=== PATIENT | female | born 1970 | race Caucasian/White ===

== ENCOUNTER → 2018-03-03 | Outpatient (CLI) | payer BC ==
--- NOTE | 2018-03-04 14:49 | MG ---
HISTORY: SCREENING Comparison: No previous mammograms are available for comparison. FINDINGS: Bilateral CC and MLO projections of the right and left breast were obtained. In addition implant disp laced views of both breasts were also obtained. Bilateral subpectoral breast implants are normal and symmetric in appearance. Heterogeneously dense fibroglandular tissue is seen to be present. On the CCID view of the right breast, a 7 mm nodular density with irregular margins is identified posteriorl y in the medial aspect of the right breast. No other findings to suggest dominant mass, areas archite ctural distortion, or suspicious microcalcifications in either breast.. No skin thickening or nipple retraction is appreciated. No pathological lymphadenopathy can be identified. Benign-appearing jorge cifications scattered throughout the right and left breasts are observed. IMPRESSION: 7 mm nodular density located posteriorly in the medial aspect of the right breast, on th e CCID view. ACR CATEGORY: 0 - incomplete-Needs additional imaging evaluation Patient should be brought back for spot compression CCID view of the right breast. In addition target ed right breast ultrasound may also be warranted. Diagnostic CAD was utilized and reviewed. * 0 (ZERO) - ASSESSMENT INCOMPLETE; ADDITIONAL IMAGING IS NEEDED. * 1/1 (ONE) - NEGATIVE. * 2/II (TWO) - BENIGN FINDINGS. * 3/III (THREE) - PROBABLY BENIGN FINDING; SHORT INTERVAL FOLLOW-UP SUGGESTED. * 4/IV (FOUR) - SUSPICIOUS ABNORMALITY; BIOPSY SHOULD BE CONSIDERED. * 5/V - HIGHLY SUSPICIOUS OF MALIGNANCY; BIOPSY SHOULD BE PERFORMED. A NEGATIVE X-RAY REPORT SHOULD NOT DELAY BIOPSY IF A DOMINANT OR CLINICALLY SUSPICIOUS MASS IS PRESENT; 4 TO 8 PERCENT OF CANCERS ARE NOT IDENTIFIED BY X-RAY. A NEGA TIVE REPORT MAY REINFORCE THE CLINICAL IMPRESSION. ADENOSIS AND DENSE BREASTS MAY OBSCURE AN UNDERLYING NEOPLASM. Reported By:
== END ==
LOC: RAD 08:52
PROVIDERS: ATTEND Specialist
DX: Z12.31 Encounter for screening mammogram for malignant neoplasm of breast (principal)
CPT/HCPCS: 77067

== ENCOUNTER → 2018-03-11 | Outpatient (CLI) | payer BC ==
--- NOTE | 2018-03-12 08:14 | MG ---
EXAM: Diagnostic right breast mammography HISTORY: Patient has been brought back to further evaluate a nodular density located posteriorly in t he medial aspect of the right breast, on recent screening mammogram. COMPARISON: Previous mammogram dated 03/03/2018. FINDINGS: A spot compression implant displaced CC view of the right breast was obtained. The previously describ ed nodular density is no longer appearance. In retrospect, this most likely represented superimpositi on of normal fibroglandular tissue. IMPRESSION: No radiographic evidence of malignancy. ACR CATEGORY: 2 - benign findings. FOLLOW-UP EXAM 1 YEAR. Diagnostic CAD was utilized and reviewed. * 0 (ZERO) - ASSESSMENT INCOMPLETE; ADDITIONAL IMAGING IS NEEDED. * 1/1 (ONE) - NEGATIVE. * 2/II (TWO) - BENIGN FINDINGS. * 3/III (THREE) - PROBABLY BENIGN FINDING; SHORT INTERVAL FOLLOW-UP SUGGESTED. * 4/IV (FOUR) - SUSPICIOUS ABNORMALITY; BIOPSY SHOULD BE CONSIDERED. * 5/V - HIGHLY SUSPICIOUS OF MALIGNANCY; BIOPSY SHOULD BE PERFORMED. A NEGATIVE X-RAY REPORT SHOULD NOT DELAY BIOPSY IF A DOMINANT OR CLINICALLY SUSPICIOUS MASS IS PRESENT; 4 TO 8 PERCENT OF CANCERS ARE NOT IDENTIFIED BY X-RAY. A NEGA TIVE REPORT MAY REINFORCE THE CLINICAL IMPRESSION. ADENOSIS AND DENSE BREASTS MAY OBSCURE AN UNDERLYING NEOPLASM. Reported By:
== END | disposition home or self-care (01) ==
LOC: RAD 13:46
PROVIDERS: ATTEND Specialist
DX: N63.10 Unspecified lump in the right breast, unspecified quadrant (principal)
CPT/HCPCS: 77065

== ENCOUNTER 2021-07-09 09:42 | Observation (INO) ==
[2021-07-09 09:58] VITALS: BMI 32.5
[2021-07-09] MEDS ORDERED: NS 1000 ML 1,000 ML IV ONE (11:06)
[2021-07-09] MEDS ORDERED: DEMEROL INJ IVP ONE ×2 (11:06→14:23)
[2021-07-09] MEDS ORDERED: ZOFRAN INJ 4 MG VIAL IVP ONE (11:06)
--- NOTE | 2021-07-09 11:09 | ED.ABDFE ---
HPI Time Seen Time Seen by Provider: 07/09/21 10:54 PCP Primary Care Physician: PAVITHRA CHACON Complaint Chief Complaint:: 0200 THIS AM PT REPORTS TO HAVING RIGHT UPPER QUAD PAIN, LEFT UPPER QUAD AND CHEST WHEN TO INHAILES , [facility] AND PT WAS TOLD IT MAY BE HER GALLBLADDER AND PT TO COME TO ER FOR EVAL ,BR Self Treatment fo Chief Complaint: TUMS, PEPTO COVID-19 Coronavirus risk:travel/contact w/high risk person: No Has patient experienced Coronavirus symptoms: No Source History Provided: Patient Mode of arrival Mode of Arrival: Ambulatory Timing Onset of Chief Complaint: 07/09/21 PMH PMH Past Medical History: No Past Surgical History: Yes Surgical History: Past Surgical History Comment: RIGHT WRIST Family History History of Family Medical Conditions: No Social History Does patient currently use any type of tobacco product: No Have you used tobacco products in the last 12 months: No Type of Tobacco Use: None Does any household member use tobacco: No Alcohol Use: None Do you use any recreational Drugs:: No Lives With: Family Lives Where: Home Travel Risk Coronavirus risk:travel/contact w/high risk person: No Has patient experienced Coronavirus symptoms: No Infectious screening In the last 2 months have you had wt loss of >10#?: NO Have you had fever, night sweats or hemotysis?: No Have you traveled outside the country in the last 6 months?: No Isolation: Standard PE Vital Signs Vitals: Pulse Rate 79 Respiratory Rate 16 Blood Pressure 195/95 O2 Sat by Pulse Oximetry 99 ROR Labs Reviewed Result Diagrams: 07/09/21 11:13 07/09/21 11:13 Laboratory: WBC 11.5 X10^3/uL (3.6-10.0) H 07/09/21 11:13 RBC 4.17 X10^6/uL (3.5-5.4) 07/09/21 11:13 Hgb 13.6 g/dL (12.0-16.0) 07/09/21 11:13 Hct 37.6 % (36.0-47.0) 07/09/21 11:13 MCV 90.2 fL (80.0-100.0) 07/09/21 11:13 MCH 32.6 pg (27.0-34.0) 07/09/21 11:13 MCHC 36.1 g/dL (33.0-35.0) H 07/09/21 11:13 RDW 12.9 % (11.6-16.5) 07/09/21 11:13 Plt Count 273 X10^3/uL (150.0-450.0) 07/09/21 11:13 MPV 9.1 fL (7.4-11.0) 07/09/21 11:13 Neut % (Auto) 88.7 % (42.0-75.0) H 07/09/21 11:13 Lymph % (Auto) 7.9 % (21.0-51.0) L 07/09/21 11:13 Yancey % (Auto) 3.1 % (0.0-13.0) 07/09/21 11:13 Eos % (Auto) 0.1 % (0.9-2.9) L 07/09/21 11:13 Baso % (Auto) 0.2 % (0.2-1.0) 07/09/21 11:13 Neut # (Auto) 10.3 x10^3/uL (2.2-4.8) H 07/09/21 11:13 Lymph # (Auto) 0.9 X10^3/uL (1.3-2.9) L 07/09/21 11:13 Yancey # (Auto) 0.4 x10^3/uL (0.3-0.8) 07/09/21 11:13 Eos # (Auto) 0.0 x10^3/uL (0.0-0.2) 07/09/21 11:13 Baso # (Auto) 0.0 X10^3/uL (0.0-0.1) 07/09/21 11:13 Absolute Nucleated RBC 0.0 /100WBC 07/09/21 11:13 Sodium 136 mmol/L (136-145) 07/09/21 11:13 Corrected Sodium 137 mmol/L (136-145) 07/09/21 11:13 Potassium 3.6 mmol/L (3.5-5.1) 07/09/21 11:13 Chloride 100 mmol/L (98-107) 07/09/21 11:13 Carbon Dioxide 25.3 mmol/L (21-32) 07/09/21 11:13 BUN 11 mg/dL (7-18) 07/09/21 11:13 Creatinine 0.70 mg/dL (0.55-1.02) 07/09/21 11:13 Est GFR (MDRD) Af Amer > 60 (>60) 07/09/21 11:13 Est GFR (MDRD) Non-Af > 60 (>60) 07/09/21 11:13 Glucose 121 mg/dL (65-99) H 07/09/21 11:13 Calcium 9.0 mg/dL (8.5-10.1) 07/09/21 11:13 Specimen Type Clean catch urine 07/09/21 11:19 Urine Color Yellow (YELLOW) 07/09/21 11:19 Urine Appearance Slightly hazy (CLEAR) 07/09/21 11:19 Urine pH 6.0 (5.0 - 8.0) 07/09/21 11:19 Ur Specific [place] 1.015 (1.000-1.030) 07/09/21 11:19 Urine Protein 2+ (NEGATIVE) 07/09/21 11:19 Urine Glucose (UA) Negative (NEGATIVE) 07/09/21 11:19 Urine Ketones 3+ (NEGATIVE) 07/09/21 11:19 Urine Occult Blood 4+ (NEGATIVE) 07/09/21 11:19 Urine Nitrite Negative (NEGATIVE) 07/09/21 11:19 Urine Bilirubin Negative (NEGATIVE) 07/09/21 11:19 Urine Urobilinogen Normal (NORMAL) 07/09/21 11:19 Ur Leukocyte Esterase Negative (NEGATIVE) 07/09/21 11:19 Urine RBC 5-10 /HPF (0-3) A 07/09/21 11:19 Urine WBC 5-10 /HPF (0-5) A 07/09/21 11:19 Ur Squamous Epith Cells Few /HPF (NEGATIVE) 07/09/21 11:19 Urine Bacteria 2+ /HPF (NEGATIVE) 07/09/21 11:19 Ur Culture Indicated? Yes/culture set up 07/09/21 11:19 Opioid Opioid Risk Tool Age (Praveen box if 16-45): No History of Preadolescent Sexual Abuse: No Total: 0 Total Score Risk Category: Low Risk Copyright: Vitor FREY predicting aberrant behaviors Diagnosis Discharge Problem: Gall stones, Acute cholecystitis, UTI (urinary tract infection), Abdominal pain Instructions Forms: Precautions for COVID19 Patient Portal Social Distancing
[2021-07-09] MEDS ORDERED: ZOFRAN INJ 4 MG VIAL ONE ×2 (11:11→16:40)
[2021-07-09] MEDS ORDERED: DEMEROL INJ ONE ×2 (11:11→14:59)
[2021-07-09] MEDS ORDERED: NS 1000 ML 1,000 ML ONE (11:11)
[2021-07-09 11:41] LABS: BLOOD UREA NITROGEN 11 mg/dL (7-18); CARBON DIOXIDE 25.3 mmol/L (21-32); CHLORIDE 100 mmol/L (98-107); COR NA(FOR HYPERGLY) 137 mmol/L (136-145); SODIUM 136 mmol/L (136-145); eGFR NON BLACK RACES > 60 (>60)
[2021-07-09 11:43] LABS: BILIRUBIN,URINE NEGATIVE (NEGATIVE); BLOOD/HEMOGLOBIN,URINE 4+ (NEGATIVE); GLUCOSE, URINE NEGATIVE (NEGATIVE); KETONES,URINE 3+ (NEGATIVE); LEUKOCYTE ESTERASE ,URINE NEGATIVE (NEGATIVE); NITRITES,URINE NEGATIVE (NEGATIVE); PROTEIN,URINE 2+ (NEGATIVE); UROBILINOGEN,URINE NORMAL (NORMAL)
[2021-07-09 11:54] LABS: APPEARANCE,URINE SLIGHTLY HAZY (CLEAR); BACTERIA,URINE 2+ /HPF (NEGATIVE); COLOR,URINE YELLOW (YELLOW); SQUAMOUS EPITHELIAL CELL,UR FEW /HPF (NEGATIVE)
[2021-07-09 11:57] LABS: BASOPHILS % (AUTO) 0.2 % (0.2-1.0); EOSINOPHILS % (AUTO) 0.1 % (0.9-2.9); HEMATOCRIT 37.6 % (36.0-47.0); HEMOGLOBIN 13.6 g/dL (12.0-16.0); LYMPHOCYTES # (AUTO) 0.9 X10^3/uL (1.3-2.9); LYMPHOCYTES % (AUTO) 7.9 % (21.0-51.0); MEAN CORPUSCULAR HEMOGLOBIN 32.6 pg (27.0-34.0); MEAN CORPUSCULAR HGB CONC 36.1 g/dL (33.0-35.0); MEAN CORPUSCULAR VOLUME 90.2 fL (80.0-100.0); MEAN PLATELET VOLUME 9.1 fL (7.4-11.0); MONOCYTES # (AUTO) 0.4 x10^3/uL (0.3-0.8); MONOCYTES % (AUTO) 3.1 % (0.0-13.0); NEUTROPHILS # (AUTO) 10.3 x10^3/uL (2.2-4.8); NEUTROPHILS % (AUTO) 88.7 % (42.0-75.0); PLATELET COUNT 273 X10^3/uL (150.0-450.0); RED BLOOD COUNT 4.17 X10^6/uL (3.5-5.4); RED CELL DISTRIBUTION WIDTH 12.9 % (11.6-16.5); WHITE BLOOD COUNT 11.5 X10^3/uL (3.6-10.0)
--- NOTE | 2021-07-09 13:38 | US ---
HISTORY: Right upper quadrant abdominal pain.Study: Right upper quadrant abdominal ultrasoundComparison: None available.Technique: Multiple rai scale and color flow Doppler images of the right upper quadrant were obtained.Findings:The liver is echogenic in appearance. No focal intraparenchymal mass or intrahepatic biliary ductal dilatation can be observed. The gallbladder is distended and there is intraluminal gallbladder sludge with associated intraluminal gallstones. There is also abnormal gallbladder wall thickening and Chi's sign is sonographically positive. These findings are concerning for acute cholecystitis, sonographically, which could be correlated/confirmed with nuclear medicine HIDA imaging, as clinically needed. The common bile duct is unremarkable measuring 5 mm. The CBD measures [within normal limits]. The right kidney appears normal in size without focal parenchymal mass or nephrolithiasis. The right kidney measurers 10 x 6 cm. No hydronephrosis or perirenal fluid can be observed. The pancreas is largely obscured by overlying bowel gas.IMPRESSION: The gallbladder is distended and there is intraluminal gallbladder sludge with associated intraluminal gallstones also noted. Additionally, there is abnormal gallbladder wall thickening and Chi's sign is sonographically positive. These findings are concerning for acute cholecystitis, sonographically, which could be correlated/confirmed with nuclear medicine HIDA imaging, as clinically needed.Electronically signed by: VARSHA THOMPSON III (Jul 09, 2021 13:36:08)
[2021-07-09] MEDS ORDERED: ZOSYN VIAL 3.375 GRAMS 3.375 G in NS 100 ML IV + SPIKE MINIBAG* 100 ML IV ONE (14:22)
[2021-07-09] MEDS ORDERED: NS 100 ML IV + SPIKE MINIBAG* 100 ML IV ONE (14:59)
[2021-07-09] MEDS ORDERED: ZOSYN VIAL 3.375 GRAMS IV ONE (14:59)
[2021-07-09] MEDS ORDERED: BACTROBAN TOPICAL OINT ONE (16:04)
[2021-07-09] MEDS ORDERED: ANCEF 1 GRAM IV PREMIX* 2 G/100 ML BAG IV ONE (16:08)
[2021-07-09] MEDS ORDERED: LR 1000 ML IV 1,000 ML IV ONE (16:08)
[2021-07-09] MEDS ORDERED: BRIDION ONE (16:23)
[2021-07-09] MEDS ORDERED: FENTANYL VIAL INJ 250 mcg ONE (16:23)
[2021-07-09] MEDS ORDERED: XYLOCAINE 2 % (PLAIN) ONE (16:40)
[2021-07-09] MEDS ORDERED: TORADOL 30 MG VIAL ONE (16:40)
[2021-07-09] MEDS ORDERED: SUPRANE ONE ×2 (16:40→17:24)
[2021-07-09] MEDS ORDERED: DIPRIVAN VIAL ONE (16:40)
[2021-07-09] MEDS ORDERED: QUELICIN (OR ANECTINE) ONE (16:40)
--- NOTE | 2021-07-09 16:55 | RAD ---
HISTORYPRE OP FOR GB Relevant Clinical InformationSTUDYCHEST, 1 VIEWCOMPARISONNoneFINDINGSThe trachea is midline. The cardiac silhouette is unremarkable. The lungs are clear without focal infiltrate or effusion. The bony thorax is unremarkable.IMPRESSIONNo acute cardiopulmonary disease.Electronically signed by: ROMMEL BONNER (Jul 09, 2021 16:54:02)
[2021-07-09] MEDS ORDERED: DILAUDID INJ ONE (17:23)
[2021-07-09] MEDS ORDERED: BARHEMSYS INJ ONE (17:52)
[2021-07-09] MEDS ORDERED: ZOFRAN INJ 4 MG VIAL IVP PRN (17:53)
[2021-07-09] MEDS ORDERED: BENADRYL INJ 50 MG VIAL IVP PRN (17:53)
[2021-07-09] MEDS ORDERED: PHENERGAN INJ 25 MG IM PRN (17:53)
[2021-07-09] MEDS ORDERED: BARHEMSYS INJ IVP PRN (17:53)
[2021-07-09] MEDS ORDERED: DILAUDID INJ IVP PRN (17:53)
[2021-07-09] MEDS ORDERED: REGLAN INJ 10 MG VIAL IVP PRN (17:53)
[2021-07-09] MEDS ORDERED: NORMODYNE INJ 20 MG VIAL ONE (18:39)
[2021-07-09] MEDS ORDERED: ZOFRAN TAB 4 MG ONE (19:32)
[2021-07-09] MEDS ORDERED: MORPHINE SULFATE INJ 2 MG INJ ONE (20:07)
[2021-07-09] MEDS: MORPHINE SULFATE INJ 2 MG INJ IVP PRN ×2 (20:10→23:54)
[2021-07-09] MEDS: D5 1/2 NS 1000 ML 1,000 ML IV SCH (21:30)
[2021-07-09 21:39] LABS: BASOPHILS % (AUTO) 0.2 % (0.2-1.0); HEMATOCRIT 38.8 % (36.0-47.0); HEMOGLOBIN 13.7 g/dL (12.0-16.0); LYMPHOCYTES # (AUTO) 0.8 X10^3/uL (1.3-2.9); LYMPHOCYTES % (AUTO) 5.1 % (21.0-51.0); MEAN CORPUSCULAR HEMOGLOBIN 32.3 pg (27.0-34.0); MEAN CORPUSCULAR HGB CONC 35.3 g/dL (33.0-35.0); MEAN CORPUSCULAR VOLUME 91.6 fL (80.0-100.0); MEAN PLATELET VOLUME 8.9 fL (7.4-11.0); MONOCYTES # (AUTO) 0.6 x10^3/uL (0.3-0.8); NEUTROPHILS # (AUTO) 14.2 x10^3/uL (2.2-4.8); NEUTROPHILS % (AUTO) 90.7 % (42.0-75.0); PLATELET COUNT 273 X10^3/uL (150.0-450.0); RED BLOOD COUNT 4.23 X10^6/uL (3.5-5.4); RED CELL DISTRIBUTION WIDTH 12.9 % (11.6-16.5); WHITE BLOOD COUNT 15.7 X10^3/uL (3.6-10.0)
[2021-07-09 21:51] LABS: ALANINE AMINOTRANSFERASE 25 Units/L (12-78); ALKALINE PHOSPHATASE 60 Units/L (46-116); ASPARTATE AMINO TRANSFERASE 26 Units/L (15-37); BLOOD UREA NITROGEN 12 mg/dL (7-18); CALCIUM 8.5 mg/dL (8.5-10.1); CHLORIDE 103 mmol/L (98-107); COR NA(FOR HYPERGLY) 139 mmol/L (136-145); SODIUM 138 mmol/L (136-145); TOTAL PROTEIN 8.1 g/dL (6.4-8.2); eGFR NON BLACK RACES > 60 (>60)
[2021-07-09 22:09] LABS: ALANINE AMINOTRANSFERASE 21 Units/L (12-78); ALBUMIN 4.2 g/dL (3.4-5.0); ALKALINE PHOSPHATASE 58 Units/L (46-116); AMYLASE 15 Units/L (25-115); ASPARTATE AMINO TRANSFERASE 14 Units/L (15-37); LIPASE 52 Units/L (73-393); TOTAL PROTEIN 8.2 g/dL (6.4-8.2)
[2021-07-09] MEDS: ANCEF VIAL 1 GRAM IVP SCH (22:12)
[2021-07-09 22:15] LABS: BAND NEUTROPHILS % 3 % (0-10)
[2021-07-09 22:16] LABS: PLATELET MORPHOLOGY COMMENT NORMAL (NORMAL)
[2021-07-09] MEDS: ZOFRAN INJ 4 MG VIAL IVP PRN (23:54)
[2021-07-10] MEDS: MORPHINE SULFATE INJ 2 MG INJ IVP PRN ×3 (02:50→10:44)
[2021-07-10] MEDS: D5 1/2 NS 1000 ML 1,000 ML IV SCH (05:16)
[2021-07-10] MEDS: ANCEF VIAL 1 GRAM IVP SCH (05:16)
[2021-07-10 06:41] LABS: BASOPHILS % (AUTO) 0.3 % (0.2-1.0); EOSINOPHILS % (AUTO) 0.1 % (0.9-2.9); HEMATOCRIT 38.7 % (36.0-47.0); HEMOGLOBIN 13.8 g/dL (12.0-16.0); LYMPHOCYTES # (AUTO) 1.5 X10^3/uL (1.3-2.9); LYMPHOCYTES % (AUTO) 11.7 % (21.0-51.0); MEAN CORPUSCULAR HEMOGLOBIN 32.6 pg (27.0-34.0); MEAN CORPUSCULAR HGB CONC 35.7 g/dL (33.0-35.0); MEAN CORPUSCULAR VOLUME 91.2 fL (80.0-100.0); MONOCYTES # (AUTO) 0.6 x10^3/uL (0.3-0.8); MONOCYTES % (AUTO) 4.7 % (0.0-13.0); NEUTROPHILS % (AUTO) 83.2 % (42.0-75.0); PLATELET COUNT 311 X10^3/uL (150.0-450.0); RED BLOOD COUNT 4.24 X10^6/uL (3.5-5.4); RED CELL DISTRIBUTION WIDTH 13.1 % (11.6-16.5); WHITE BLOOD COUNT 13.3 X10^3/uL (3.6-10.0)
[2021-07-10] MEDS: ZOFRAN INJ 4 MG VIAL IVP PRN (06:42)
[2021-07-10 07:08] LABS: ALANINE AMINOTRANSFERASE 29 Units/L (12-78); ALBUMIN 3.6 g/dL (3.4-5.0); ALKALINE PHOSPHATASE 64 Units/L (46-116); ASPARTATE AMINO TRANSFERASE 25 Units/L (15-37); BLOOD UREA NITROGEN 8 mg/dL (7-18); CALCIUM 8.8 mg/dL (8.5-10.1); CARBON DIOXIDE 24.1 mmol/L (21-32); CHLORIDE 100 mmol/L (98-107); COR NA(FOR HYPERGLY) 136 mmol/L (136-145); CREATININE 0.83 mg/dL (0.55-1.02); SODIUM 135 mmol/L (136-145); eGFR NON BLACK RACES > 60 (>60)
[2021-07-10 07:42] VITALS: BP 181/95
[2021-07-10] MEDS ORDERED: MYLICON TAB 80 MG CHEW PO PRN (10:42)
== END 2021-07-10 12:00 | disposition home or self-care (01) ==
LOC: ER 09:51 → MED/SURG 09:51
PROVIDERS: ADMIT Surgery; ATTEND Surgery
DX: K82.1 Hydrops of gallbladder; R10.84 Generalized abdominal pain; K80.00 Calculus of gallbladder with acute cholecystitis without obstruction; N39.0 Urinary tract infection, site not specified; K66.0 Peritoneal adhesions (postprocedural) (postinfection)

== ENCOUNTER 2022-05-09 06:19 | Inpatient (IN) ==
[2022-05-09] MEDS ORDERED: D5 1/2 NS 1,000 ML 1,000 ML IV SCH (06:34)
[2022-05-09] MEDS ORDERED: ANCEF VIAL 1 GRAM IVP ONE (06:34)
[2022-05-09] MEDS ORDERED: ANCEF VIAL 1 GRAM ONE (06:40)
[2022-05-09] MEDS ORDERED: NS 100 ML IV 100 ML ONE (06:40)
[2022-05-09] MEDS ORDERED: D5 1/2 NS 1,000 ML 1,000 ML IV ONE (06:40)
[2022-05-09] MEDS ORDERED: BETADINE SOLN ONE (06:47)
[2022-05-09] MEDS ORDERED: PRECEDEX INJ VIAL IVP ONE (07:01)
[2022-05-09 07:15] VITALS: BMI 32.3
[2022-05-09] MEDS ORDERED: XYLOCAINE 2 % (PLAIN) ONE (07:15)
[2022-05-09] MEDS ORDERED: DILAUDID INJ ONE (07:15)
[2022-05-09] MEDS ORDERED: KETAMINE HCL ONE (07:15)
[2022-05-09] MEDS ORDERED: BARHEMSYS INJ ONE (07:20)
[2022-05-09] MEDS ORDERED: BRIDION ONE (07:33)
[2022-05-09] MEDS ORDERED: DECADRON INJ ONE (07:33)
[2022-05-09] MEDS ORDERED: PEPCID 20 MG VIAL ONE (07:33)
[2022-05-09] MEDS ORDERED: DIPRIVAN VIAL 20 ML ONE (07:33)
[2022-05-09] MEDS ORDERED: ZEMURON 100 MG VIAL ONE (07:33)
[2022-05-09] MEDS ORDERED: TORADOL 30 MG VIAL ONE (07:33)
[2022-05-09] MEDS ORDERED: OFIRMEV IV 1000 MG VIAL 1,000 MG/100 ML VIAL IV ONE (07:33)
[2022-05-09] MEDS ORDERED: ZOFRAN INJ 4 MG VIAL ONE (07:33)
[2022-05-09] MEDS ORDERED: ProvayBLUE 0.5% ONE (07:35)
[2022-05-09] MEDS ORDERED: FENTANYL VIAL INJ 100 mcg ONE (09:00)
[2022-05-09] MEDS ORDERED: ZOFRAN INJ 4 MG VIAL IVP PRN (09:56)
[2022-05-09] MEDS ORDERED: BARHEMSYS INJ IVP PRN (09:56)
[2022-05-09] MEDS ORDERED: DILAUDID INJ IVP PRN (09:56)
[2022-05-09] MEDS ORDERED: PHENERGAN INJ 25 MG IM PRN (09:56)
[2022-05-09] MEDS ORDERED: BENADRYL INJ 50 MG VIAL IVP PRN ×2 (09:56→10:39)
[2022-05-09] MEDS: D5 1/2 NS 1,000 ML 1,000 ML IV SCH ×2 (11:09→19:44)
[2022-05-09] MEDS: ZOFRAN INJ 4 MG VIAL IVP PRN ×3 (11:10→19:45)
[2022-05-09] MEDS: MORPHINE SULFATE PCA 30 MG IVP PRN ×2 (11:24→15:58)
[2022-05-09] MEDS: TORADOL 30 MG VIAL IVP PRN (17:12)
[2022-05-10] MEDS: TORADOL 30 MG VIAL IVP PRN (01:19)
[2022-05-10] MEDS: MORPHINE SULFATE PCA 30 MG IVP PRN (02:35)
[2022-05-10] MEDS: D5 1/2 NS 1,000 ML 1,000 ML IV SCH ×4 (03:07→20:00)
[2022-05-10 05:14] LABS: BASOPHILS % (AUTO) 0.4 % (0.2-1.0); EOSINOPHILS # (AUTO) 0.2 x10^3/uL (0.0-0.2); EOSINOPHILS % (AUTO) 1.9 % (0.9-2.9); HEMATOCRIT 30.1 % (36.0-47.0); HEMOGLOBIN 10.8 g/dL (12.0-16.0); LYMPHOCYTES # (AUTO) 1.3 X10^3/uL (1.3-2.9); LYMPHOCYTES % (AUTO) 11.9 % (21.0-51.0); MEAN CORPUSCULAR HEMOGLOBIN 32.6 pg (27.0-34.0); MEAN CORPUSCULAR HGB CONC 35.9 g/dL (33.0-35.0); MEAN CORPUSCULAR VOLUME 90.7 fL (80.0-100.0); MEAN PLATELET VOLUME 8.5 fL (7.4-11.0); MONOCYTES # (AUTO) 0.6 x10^3/uL (0.3-0.8); MONOCYTES % (AUTO) 5.3 % (0.0-13.0); NEUTROPHILS % (AUTO) 80.5 % (42.0-75.0); RED BLOOD COUNT 3.32 X10^6/uL (3.5-5.4); WHITE BLOOD COUNT 11.2 X10^3/uL (3.6-10.0)
[2022-05-10 05:23] LABS: BLOOD UREA NITROGEN 8 mg/dL (7-18); CALCIUM 7.5 mg/dL (8.5-10.1); CARBON DIOXIDE 25.6 mmol/L (21-32); CHLORIDE 99 mmol/L (98-107); COR NA(FOR HYPERGLY) 132 mmol/L (136-145); CREATININE 0.83 mg/dL (0.55-1.02); SODIUM 131 mmol/L (136-145); eGFR NON BLACK RACES > 60 (>60)
[2022-05-10] MEDS: COLACE CAP 100 MG PO SCH ×2 (10:02→21:02)
[2022-05-10] MEDS: ESTRACE PO SCH (10:02)
[2022-05-10] MEDS: PERCOCET TAB 5/325 MG PO PRN ×2 (10:05→19:16)
[2022-05-10] MEDS: ZOFRAN INJ 4 MG VIAL IVP PRN (10:06)
[2022-05-10] MEDS: BACTROBAN TOPICAL OINT TOP SCH ×2 (13:37→21:03)
[2022-05-10] MEDS: MOTRIN TAB 800 MG PO PRN (13:50)
[2022-05-11] MEDS: D5 1/2 NS 1,000 ML 1,000 ML IV SCH (03:00)
[2022-05-11] MEDS: MOTRIN TAB 800 MG PO PRN (03:10)
[2022-05-11] MEDS: BACTROBAN TOPICAL OINT TOP SCH (05:24)
[2022-05-11] MEDS: PERCOCET TAB 5/325 MG PO PRN (08:02)
[2022-05-11] MEDS: COLACE CAP 100 MG PO SCH (08:48)
[2022-05-11] MEDS: ESTRACE PO SCH (08:48)
[2022-05-11 09:29] VITALS: BP 141/63
== END 2022-05-11 10:18 | disposition home or self-care (01) | DRG 743 ==
LOC: MED/SURG 06:19
PROVIDERS: ADMIT Specialist; ATTEND Specialist
DX: D25.2 Subserosal leiomyoma of uterus; N94.4 Primary dysmenorrhea; N92.5 Other specified irregular menstruation